=== PATIENT | male | born 1935 | race Caucasian/White ===

== ENCOUNTER → 2019-01-17 | Outpatient (CLI) | payer MEDICARE, OTHER ==
[~2019-01-17] MED LIST: DABI150C PO; HYDR-2145 PO; LISI-379 PO
--- NOTE | 2019-01-17 11:53 | EKG ---
[address] [address] Test Date: 2019-01-17 Test Time: 11:43:26 Pat Name: JANAY CARDENAS Department: Room: Gender: M Senior Network Security Architect: KENN : 1935 Requested By: JORGE HUFFMAN Order Number: [id number] Reading MD: Joe Ulloa Measurements Intervals [place] Rate: 45 P: DC: QRS: 2 QRSD: 104 T: 15 QT: 448 QTc: 393 Interpretive Statements ATRIAL FIBRILLATION WITH SLOW VENTRICUALAR RATE Electronically Signed On 01-22-2019 13:23:33 CDT by Joe Ulloa
== END | disposition home or self-care (01) ==
LOC: EKG 11:11
PROVIDERS: ATTEND General Practice
DX: I49.8 Other specified cardiac arrhythmias (principal)
CPT/HCPCS: 93005